=== PATIENT | female | born 1975 | race Caucasian/White ===

== ENCOUNTER 2017-04-28 16:03 | Emergency (ER) | payer MEDICAID ==
[2017-04-28] MEDS ORDERED: KETOROLAC TROMETHAMINE 30 MG/ML VIAL IV ONE (17:02)
[2017-04-28] MEDS ORDERED: diphenhydrAMINE HCL 50 MG/ML VIAL IV ONE ×2 (17:02→18:26)
[2017-04-28] MEDS ORDERED: NORMAL SALINE 1,000 ML IV ONE (17:02)
[2017-04-28] MEDS ORDERED: PROMETHAZINE HCL 25 MG in DEXTROSE 5 % IN WATER 50 ML IV ONE ×2 (17:02)
[2017-04-28] MEDS ORDERED: diphenhydrAMINE HCL 50 MG/ML VIAL ONE ×2 (17:08→18:29)
[2017-04-28] MEDS ORDERED: KETOROLAC TROMETHAMINE 30 MG/ML VIAL ONE (17:08)
[2017-04-28] MEDS ORDERED: PROMETHAZINE HCL 25 MG/ML AMPUL ONE (17:09)
--- OUTSIDE RECORDS SUMMARY | 2017-04-28 17:11 | XMS REPORT | Encounter Summary ---
:1975 Author Organization [place] [place] [address] Care Team Providers Name Role Phone Unavailable Primary Care Provider Unavailable Reason for Visit Reason Comments Other Encounter Details Date Type Department Care Team Description 11/26/2016 Telephone [facility] Urology Christiana Johnson, KESHAV [facility] [address] [place] [address] [place] [address] Social History Tobacco Use Types Packs/Day Years Used Date Former Smoker Smokeless Tobacco: Never Used Alcohol Use Drinks/Week oz/Week Comments No 0 Standard drinks or equivalent 0.0 Sex Assigned at Date Recorded Not on file as of this encounter Plan of Treatment Not on fileas of this encounter Visit Diagnoses Not on filein this encounter
--- OUTSIDE RECORDS SUMMARY | 2017-04-28 17:11 | XMS REPORT | Clinical Summary ---
:1975 Author Organization [facility] Address Unavailable [address] [address] [address] Care Team Providers Name Role Phone Unavailable Primary Care Provider Unavailable Source Comments This disclosure is being made pursuant to the [employer] program and maynot contain all information available regarding this patient.[facility] Allergies Active Allergy Reactions Severity Noted Date Comments Prochlorperazine Edisylate Other (See Comments) 05/03/2015 Restless legs Metoclopramide Hcl Other (See Comments) 05/03/2015 Restless legs Sulfa Antibiotics Other (See Comments) 05/03/2015 Current Medications Be aware that medications may not be up to date as of this document. Alwaysverify current medications with the patient. Prescription Sig. Disp. Refills Start Date End Date Status HYDROcodone-acetaminophen Take 1 tablet 40 tablet 0 05/03/2015 Active (NORCO) 5-325 MG per by mouth every tablet 6 (six) hours as needed for Pain. cyclobenzaprine Take 1 tablet 30 tablet 0 05/26/2015 Active (FLEXERIL) 5 MG tablet by mouth 3 (three) times daily as needed for Muscle spasms. metformin (GLUCOPHAGE) Take 1,000 mg Active 1000 MG tablet by mouth 2 (two) times daily with meals. gabapentin (NEURONTIN) Take 600 mg by Active 100 MG capsule mouth 3 (three) times daily. traMADol (ULTRAM) 50 MG Take 50 mg by Active tablet mouth every 6 (six) hours as needed for Pain. Lurasidone HCl (LATUDA) Take 120 mg by Active 120 MG TABS mouth daily. OXcarbazepine (TRILEPTAL) Take 1,800 mg Active 600 MG tablet by mouth daily. rosuvastatin (CRESTOR) 10 Take 10 mg by Active MG tablet mouth daily. clonazePAM (KLONOPIN) 1 Take 1 mg by Active MG tablet mouth 2 (two) times daily as needed for Anxiety. meloxicam (MOBIC) 15 MG Take 15 mg by Active tablet mouth daily. calcium-vitamin D Take 1 tablet 30 tablet 0 06/06/2015 Active (CALTRATE 600-400) by mouth 2 600-400 MG-UNIT per (two) times tablet daily with meals. Active Problems Problem Noted Date Type II diabetes mellitus (HCC) 06/06/2015 Hyperlipidemia 06/06/2015 Vitamin B12 deficiency 06/06/2015 Right knee sprain 05/05/2015 Immunizations Name Dates Previously Given Next Due Tdap 06/06/2015 Family History Medical History Relation Name Comments Heart disease Father Cancer Mother Cancer Other Diabetes Other Heart disease Other Stroke Other Relation Name Status Comments Father Mother Other Social History Tobacco Use Types Packs/Day Years Used Date Former Smoker Smokeless Tobacco: Never Used Alcohol Use Drinks/Week oz/Week Comments No 0 Standard drinks or equivalent 0.0 Sex Assigned at Date Recorded Not on file Last Filed Vital Signs Vital Sign Reading Time Taken Blood Pressure 118/82 06/06/2015 10:50 AM CDT Pulse 90 06/06/2015 10:50 AM CDT Temperature - - Respiratory Rate 18 06/06/2015 10:50 AM CDT Oxygen Saturation 97% 06/06/2015 10:50 AM CDT Inhaled Oxygen Concentration - - Weight 88 kg (194 lb) 06/06/2015 10:50 AM CDT Height 177.8 cm (5' 10") 06/06/2015 10:50 AM CDT Body Mass Index 27.84 06/06/2015 10:50 AM CDT Plan of Treatment Health Maintenance Due Date Last Done Comments LAB-LIPIDS 1975 LAB-HgA1C 1980 LAB-URINE MICROALBUMIN 1985 Pneumococcal Medium Risk 19-64 yo (1 of 1 - PPSV23) 1994 Pap Smear 1996 Eye (Ophthalmology) Exam 08/29/2015 08/29/2014 INFLUENZA IMMUNIZATION (#1) 2016 Foot Exam 06/06/2016 06/06/2015 Tetanus/Pertussis (2 - Td) 06/06/2025 06/06/2015 Results Not on filefrom Last 3 Months Insurance Payer Benefit Plan / Group Subscriber ID Type Phone Address [place] [id number] [address] [place] [address] Home: [address] [phone] [place], [place] [phone]
--- NOTE | 2017-04-28 17:12 | ERNOTE ---
Headache ER HPI - Narrative Date of Service: 04/28/17 - General Presenting Symptoms: "migraine" Time Seen by Provider: 04/28/17 16:52 Source: patient Exam Limitations: no limitations - Immun/Allergies/Home Medications Immunizations: IMMUNIZATION HX Immunizations Up to Date Yes History of Influenza Vaccine No Hx Pneumococcal Vaccination No Allergies/Adverse Reactions: Allergies metoclopramide HCl [From Reglan] Allergy (Verified 04/28/17 16:09) prochlorperazine [From Compazine] Allergy (Verified 04/28/17 16:09) prochlorperazine edisylate [From Compazine] Allergy (Verified 04/28/17 16:09) prochlorperazine maleate [From Compazine] Allergy (Verified 04/28/17 16:09) Sulfa (Sulfonamide Antibiotics) Allergy (Verified 04/28/17 16:09) Home Medications: HOME MEDICATIONS metFORMIN HCL [Glucophage] 1,000 mg PO BIDWM 01/03/16 [Last Taken 01/14/16] Ibuprofen [Motrin] 800 mg PO .Q8H PRN #30 tablet 01/14/16 [Last Taken Unknown] Ondansetron [Zofran Odt] 4 mg PO Q6H PRN 02/03/16 [Last Taken Unknown] - History of Present Illness Narrative: Pt. comes in with c/o migraine for 5 days that started after she developed a sty in her L eye. Pt. states that she has had migraines in the past and that this one is similar. Pt. denies any vision changes, SOB, CP, NVD, fever, alleviating factors, prehospital treatment, but does state that light exacerbates the pain. Review of Systems - Review of Systems Constitutional: Present: no symptoms reported. Absent: weakness, fatigue, malaise, weight loss EYE: Present: no symptoms reported ENT: Present: no symptoms reported Respiratory: Present: no symptoms reported Cardiology: Present: no symptoms reported. Absent: chest pain, palpitations, edema Gastrointestinal/Abdominal: Present: no symptoms reported. Absent: nausea, vomiting, diarrhea, abdominal pain Genitourinary: Present: no symptoms reported Musculoskeletal: Present: no symptoms reported. Absent: back pain, neck pain, joint pain Skin: Present: no symptoms reported Neurological: Present: headache. Absent: dizziness/light-headedness, numbness, tingling All Other Systems: All systems neg except as marked - Patient's Past Medical History Patient History - Medical: Diabetes Type 2, Migraines Patient History - Cardiac/Respiratory: No pertinent hx Patient History - Cancer: No Hx of Cancer Patient History - Surgical Procedures: Appendectomy, Cholecystectomy, Hysterectomy Patient History - Other: None - Family History dad Family History - Medical: Family History - Cardiac/Respiratory: Myocardial Infarction - Social History Living Situations: home Abuse History: No History of abuse Psych History: Hx of Anxiety, Hx of Depression Alcohol Use: none Drug Use: none - Immunizations Immunizations Up to Date: Yes Hx Pneumococcal Vaccination: No History of Influenza Vaccine: No Physical Exam - Physical Exam General Appearance: Present: wd/wn, alert, no apparent distress Head Exam: Present: normal inspection, no evidence of injury Eye Exam: Normal inspection: bilateral, PERRL: bilateral, EOMI: bilateral, Scleral icterus: left, Eyelid inflammation: left Ears, Nose, Throat: Present: normal ENT inspection, normal pharynx Neck: Present: normal inspection, nontender. Absent: lymphadenopathy (R), lymphadenopathy (L) Respiratory: Present: no respiratory distress, normal breath sounds, no accessory muscle use, chest nontender, lungs clear Cardiovascular/Chest: Present: regular rate, rhythm, no murmur, normal peripheral pulses Back Exam: Present: normal inspection, normal range of motion, no CVA tenderness , no vertebral tenderness Extremity Exam: Present: normal inspection, non-tender Neurological Exam: Present: alert, oriented, normal mood/affect, no motor/ sensory deficits, configuration management architect II-XII nml as tested, normal cerebellar test Skin Exam: Present: normal color, warm/dry. Absent: pallor, skin rash ED Progress - Date and Time Seen: Date and Time: 04/28/17 18:35 Pt. requesting dilaudid for her headache and states that sometimes her migraines last for nine days. Educated her that dilaudid is not the appropriate medication for migraine headaches due to medication complications. - Vital Signs Patient's Vital Signs:: I have reviewed the patient's vital signs. Vital Signs: Vital Signs 04/28/17 04/28/17 16:04 16:40 Temperature 36.3 C L Pulse Rate 81 74 Respiratory 12 Rate Blood Pressure 135/90 125/61 O2 Sat by Pulse 98 96 Oximetry - Progress/Reassessment Chief Complaint: Headache Progress:: Improved Departure Clinical Impression: Migraine Qualifiers: Migraine type: chronic without aura Status migrainosus presence: without status migrainosus Intractability: not intractable Qualified Code(s): G43.709 - Chronic migraine without aura, not intractable, without status migrainosus Conjunctivitis Qualifiers: Conjunctivitis type: blepharoconjunctivitis Blepharoconjunctivitis type: unspecified Laterality: left Qualified Code(s): H10.502 - Unspecified blepharoconjunctivitis, left eye - Departure Disposition: Home self-care Condition: Good Instructions: Recurrent Migraine Headache Additional Instructions: Please follow up with your primary provider in 2-3 days. Referrals: Chidi Atkins MD [Primary Care Provider] -
[2017-04-28] MEDS ORDERED: NALBUPHINE HCL 20 MG/ML AMPUL IV ONE (18:26)
[2017-04-28] MEDS ORDERED: NALBUPHINE HCL 20 MG/ML AMPUL ONE ×2 (18:29→18:36)
[2017-04-28 18:42] VITALS: BP 131/70
== END 2017-04-28 18:54 | disposition home or self-care (01) ==
LOC: ER 16:03
DX: G43.709 Chronic migraine without aura, not intractable, without status migrainosus (principal); H10.502 Unspecified blepharoconjunctivitis, left eye; E11.9 Type 2 diabetes mellitus without complications

== ENCOUNTER 2017-05-01 00:02 | Emergency (ER) | payer MEDICAID ==
--- NOTE | 2017-05-01 01:15 | ERNOTE ---
Headache ER HPI - General Presenting Symptoms: headache, facial pain Time Seen by Provider: 05/01/17 00:58 Source: patient Exam Limitations: no limitations - Immun/Allergies/Home Medications Immunizations: IMMUNIZATION HX Immunizations Up to Date No History of Influenza Vaccine No Hx Pneumococcal Vaccination No Allergies/Adverse Reactions: Allergies metoclopramide HCl [From Reglan] Allergy (Verified 05/01/17 00:30) prochlorperazine [From Compazine] Allergy (Verified 05/01/17 00:30) prochlorperazine edisylate [From Compazine] Allergy (Verified 05/01/17 00:30) prochlorperazine maleate [From Compazine] Allergy (Verified 05/01/17 00:30) Sulfa (Sulfonamide Antibiotics) Allergy (Verified 05/01/17 00:30) Home Medications: HOME MEDICATIONS metFORMIN HCL [Glucophage] 1,000 mg PO BIDWM 01/03/16 [Last Taken 01/14/16] Meloxicam [Mobic] 15 mg PO DAILY #14 tab 05/01/17 [Last Taken Unknown] - Pain Pain Score: 8 - History of Present Illness Narrative: Pt states that she was going through a doorway in her house and hit both sides of her head on the doorway. States she has been vomiting and has severe headache and blurred vision Activity at onset: other Timing of Headache: abrupt Context Headache: Present: new onset Quality: Present: throbbing Severity Maximum: Present: severe Severity-Currently: Present: severe Review of Systems - Review of Systems Constitutional: Absent: recent illness EYE: Present: blurred vision ENT: Present: other - facial pain Respiratory: Present: no symptoms reported Cardiology: Present: no symptoms reported Gastrointestinal/Abdominal: Present: nausea, vomiting Musculoskeletal: Absent: back pain, neck pain, joint pain Skin: Present: change in color - left "black eye" from another injury Neurological: Present: headache, dizziness/light-headedness Endocrine: Present: no symptoms reported Hematologic/Lymphatic: Present: no symptoms reported Psych: Present: no symptoms reported - Patient's Past Medical History Patient History - Medical: Diabetes Type 2, Migraines Patient History - Cardiac/Respiratory: No pertinent hx Patient History - Cancer: No Hx of Cancer Patient History - Surgical Procedures: Appendectomy, Cholecystectomy, Hysterectomy Patient History - Other: None - Family History dad Family History - Medical: Family History - Cardiac/Respiratory: Myocardial Infarction - Social History Living Situations: home Abuse History: No History of abuse Psych History: Hx of Anxiety, Hx of Depression Smoking Status: Former smoker Patient requests Smoking Cessation Consult: No Initiate information on Smoking Cessation: No Alcohol Use: none Drug Use: none - Immunizations Immunizations Up to Date: No Hx Pneumococcal Vaccination: No History of Influenza Vaccine: No Physical Exam - Physical Exam General Appearance: Present: wd/wn, alert, moderate distress, anxious Head Exam: Present: tenderness - bilateral temples, maxilla. Absent: lacerations Eye Exam: PERRL: bilateral, EOMI: bilateral, Other: left - bruising around eye, old Ears, Nose, Throat: Present: other - TM's normal b/l. Absent: nasal congestion Neck: Present: normal inspection, nontender, supple, full range of motion Respiratory: Present: no respiratory distress, no accessory muscle use Back Exam: Present: normal inspection, normal range of motion, no vertebral tenderness Extremity Exam: Present: normal inspection, non-tender, normal range of motion, no edema Neurological Exam: Present: alert, oriented Skin Exam: Present: normal color, warm/dry Lymphatic Exam: Present: no adenopathy ED Progress - Results and Orders Patient's Lab Results:: I have reviewed the patient's lab results. Results and Orders: Laboratory Tests 05/01/17 05/01/17 05/01/17 01:08 01:08 01:09 WBC 10.8 H Hgb 11.1 L Hct 34.0 L Plt Count 281 ESR 23 H Sodium 143 H Potassium 3.7 Chloride 103 Carbon Dioxide 28.1 Anion Gap 15.6 H BUN 14 Creatinine 0.68 Random Glucose 90 Calcium 8.8 Total Bilirubin 0.2 AST 13 ALT 17 L Alkaline Phosphatase 120 C-Reactive Prot, Quant Less than 0.2 Total Protein 7.3 Albumin 4.1 - Vital Signs Patient's Vital Signs:: I have reviewed the patient's vital signs. Vital Signs: Vital Signs 05/01/17 00:26 Temperature 36.8 C Pulse Rate 96 Respiratory 18 Rate Blood Pressure 136/93 O2 Sat by Pulse 98 Oximetry - CT/Ultrasound CT/Ultrasound Narrative: CT head: no intracranial hemorrhage or mass effect CT facial bones: mild frontal scalp swelling left periorbital soft tissue swelling no fx clear mastoids and sinuses - Progress/Reassessment Chief Complaint: Headache Progress:: Improved - slightly Progress Note-Subjective: 05/01/17 03:19 Ordered zofran and toradol after getting CT results back. Pt refused either one and asked for phenergan because she knows that will work for her. Pt was only slightly better after phenergan. I offered meloxicam and acetaminophen. Pt then asked for toradol and benadryl to help her sleep. I agreed. Departure Clinical Impression: Concussion Qualifiers: Encounter type: initial encounter Loss of consciousness presence/duration: without LOC Qualified Code(s): S06.0X0A - Concussion without loss of consciousness, initial encounter - Departure Disposition: Home Follow Up Needed Condition: Good Instructions: Concussion, Adult, [id number] Additional Instructions: You may take the prescription sent in for you as directed. You may also take Tylenol as needed. Avoid strenuous activities. See your regular doctor for follow up in 5-7 days Referrals: Chidi Atkins MD [Primary Care Provider] - Prescriptions: Meloxicam [Mobic] 15 mg PO DAILY #14 tab
--- OUTSIDE RECORDS SUMMARY | 2017-05-01 01:19 | XMS REPORT | Clinical Summary ---
:1975 Author Organization [facility] Address Unavailable [place] [address] Care Team Providers Name Role Phone Unavailable Primary Care Provider Unavailable Source Comments This disclosure is being made pursuant to the [employer] program and maynot contain all information available regarding this patient.[facility] Allergies Active Allergy Reactions Severity Noted Date [...] ID Type Phone Address [place] [id number] [address] [place] [address] Home: [address] [phone] [place], [place] [phone]
--- OUTSIDE RECORDS SUMMARY | 2017-05-01 01:20 | XMS REPORT | Encounter Summary ---
:1975 Author Organization [employer] [place] [address] Care Team Providers Name Role Phone Unavailable Primary Care Provider Unavailable Reason for Visit Reason Comments Other Encounter Details Date Type Department Care Team Description 11/26/2016 Telephone [facility] Urology Christiana Johnson, KESHAV [facility] [address] [place] [address] [place] [address] Social History Tobacco Use Types [...]
[2017-05-01 01:45] LABS: Hemoglobin 11.1 gm/dL (12.5-16.0); Mean Cell Volume 89.5 fl (78-100); Mean Corpuscular Hemoglobin 29.2 pg (27-31); Mean Corpuscular Hgb Conc 32.6 g/dl (32-36); Mean Platelet Volume 9.8 fl (6.0-9.5); Neutrophil # 7.2 K/mm3 (1.3-6.0); Neutrophil % 66.8 % (42-75.0); Platelet Count 281 K/mm3 (150-450); Red Cell Distribution Width 13.3 % (11.5-14.0); White Blood Count 10.8 K/mm3 (4.0-10.5)
[2017-05-01] MEDS ORDERED: ONDANSETRON HCL/PF 2 MG/ML VIAL IV ONE (02:02)
[2017-05-01] MEDS ORDERED: NORMAL SALINE 1,000 ML IV ONE (02:02)
[2017-05-01] MEDS ORDERED: KETOROLAC TROMETHAMINE 30 MG/ML VIAL IV ONE ×2 (02:02→03:13)
[2017-05-01] MEDS ORDERED: ONDANSETRON HCL/PF 2 MG/ML VIAL ONE (02:06)
[2017-05-01] MEDS ORDERED: KETOROLAC TROMETHAMINE 30 MG/ML VIAL ONE ×2 (02:06→03:13)
[2017-05-01 02:08] LABS: ALT 17 U/L (19-67); AST 13 U/L (0-48); Albumin * 4.1 gm/dl (3.4-5.0); Alkaline Phosphatase * 120 U/L (50-170); Anion Gap 15.6 mmol/L (6.8-13.8); BUN/Creatinine Ratio 20.6 (9.0-21.6); Bilirubin, Total 0.2 mg/dL (0.0-1.1); Blood Urea Nitrogen 14 mg/dL (3-23); Ca. Corrected For Albumin 8.4 mg/dL (8.4-10.2); Calcium * 8.8 mg/dL (7.9-10.9); Carbon Dioxide 28.1 mmol/L (24-32.6); Chloride 103 mmol/L (97-106); Glucose * 90 mg/dL (70-110); Potassium 3.7 mmol/L (3.4-4.6); Sodium 143 mmol/L (132-142); Total Protein 7.3 gm/dL (6.2-8.2)
[2017-05-01] MEDS ORDERED: PROMETHAZINE HCL 25 MG/ML AMPUL IM ONE (02:33)
[2017-05-01] MEDS ORDERED: PROMETHAZINE HCL 25 MG/ML AMPUL ONE (02:38)
[2017-05-01 02:46] VITALS: BP 132/76
[2017-05-01] MEDS ORDERED: diphenhydrAMINE HCL 50 MG/ML VIAL IV ONE (03:13)
[2017-05-01] MEDS ORDERED: diphenhydrAMINE HCL 50 MG/ML VIAL ONE (03:13)
== END 2017-05-01 03:28 | disposition home or self-care (01) ==
LOC: ER 00:02
DX: S06.0X0A Concussion without loss of consciousness, initial encounter (principal); E11.9 Type 2 diabetes mellitus without complications; Z87.891 Personal history of nicotine dependence; W22.8XXA Striking against or struck by other objects, initial encounter; Y92.098 Other place in other non-institutional residence as the place of occurrence of the external cause

== ENCOUNTER 2017-05-21 13:58 | Emergency (ER) | payer MEDICAID ==
[2017-05-21] MEDS ORDERED: NITROGLYCERIN 0.4 MG/TAB BTL SL ONE (14:24)
[2017-05-21] MEDS ORDERED: ASPIRIN 81 MG TAB.CHEW PO ONE (14:24)
[2017-05-21 14:25] LABS: Hematocrit 31.3 % (37.0-47.0); Hemoglobin 10.4 gm/dL (12.5-16.0); Mean Cell Volume 89.2 fl (78-100); Mean Corpuscular Hemoglobin 29.6 pg (27-31); Mean Corpuscular Hgb Conc 33.2 g/dl (32-36); Mean Platelet Volume 9.8 fl (6.0-9.5); Neutrophil # 3.4 K/mm3 (1.3-6.0); Platelet Count 269 K/mm3 (150-450); Red Blood Count 3.51 M/mm3 (4.2-5.4); Red Cell Distribution Width 13.7 % (11.5-14.0); White Blood Count 6.4 K/mm3 (4.0-10.5)
--- NOTE | 2017-05-21 14:33 | ERNOTE ---
Chest Pain/Cardiac HPI Date of Service: 05/21/17 Chief Complaint: Chest Pain Time Seen by Provider: 05/21/17 14:19 Source: patient, RN notes reviewed Exam Limitations: no limitations Immunizations: IMMUNIZATION HX Immunizations Up to Date No History of Influenza Vaccine No Hx Pneumococcal Vaccination No Allergies/Adverse Reactions: Allergies metoclopramide HCl [From Reglan] Allergy (Verified 05/21/17 14:12) prochlorperazine [From Compazine] Allergy (Verified 05/21/17 14:12) prochlorperazine edisylate [From Compazine] Allergy (Verified 05/21/17 14:12) prochlorperazine maleate [From Compazine] Allergy (Verified 05/21/17 14:12) Sulfa (Sulfonamide Antibiotics) Allergy (Verified 05/21/17 14:12) Home Medications: HOME MEDICATIONS metFORMIN HCL [Glucophage] 1,000 mg PO BIDWM 01/03/16 [Last Taken 01/14/16] Meloxicam [Mobic] 15 mg PO DAILY #14 tab 05/01/17 [Last Taken Unknown] Pain Score #1 Pain Score: 10 Narrative: 41 y/o female brought to the ED by private vehicle for chest pain that woke her from sleep at 1230. It is radiating down her left arm. She also reports a headache. She states that she was feeling fine when she went to bed. Timing: constant Severity/Quality: severe, pressure Location: substernal Chest Pain Radiation: arms Activities at Onset: sleep Modifying Factors - Improves: Present: nothing Modifying Factors - Worsens: Present: nothing Nitro Today/Relief: no nitro taken today Aspirin Treatment Today: no aspirin today Associated Symptoms: Present: headache. Absent: dizziness, syncope, cough, shortness of breath, diaphoresis, fever/chills, palpitations, heartburn, nausea , vomiting, abdominal pain, weakness, back pain Prior Chest Pain/Cardiac Workup: Reports: no prior cardiac workup Prior Treatment: Denies: recently seen Review of Systems - Review of Systems Constitutional: Absent: recent illness, fever, chills EYE: Present: no symptoms reported ENT: Absent: nose congestion, sore throat Respiratory: Absent: shortness of breath, cough Cardiology: Present: chest pain. Absent: palpitations, syncope, edema Gastrointestinal/Abdominal: Absent: nausea, vomiting, abdominal pain Genitourinary: Present: no symptoms reported Musculoskeletal: Absent: back pain, muscle pain Skin: Absent: rash, lesions Neurological: Present: headache. Absent: dizziness/light-headedness Endocrine: Present: no symptoms reported Hematologic/Lymphatic: Absent: easy bruising, easy bleeding Psych: Present: no symptoms reported - Patient's Past Medical History Patient History - Medical: Diabetes Type 2, Migraines Patient History - Cardiac/Respiratory: No pertinent hx Patient History - Cancer: No Hx of Cancer Patient History - Surgical Procedures: Appendectomy, Cholecystectomy, Hysterectomy Patient History - Other: None - Family History dad Family History - Medical: Family History - Cardiac/Respiratory: Myocardial Infarction - Social History Living Situations: home Abuse History: No History of abuse Psych History: Hx of Anxiety, Hx of Depression Smoking Status: Never smoker Alcohol Use: none Drug Use: none - Immunizations Immunizations Up to Date: No Hx Pneumococcal Vaccination: No History of Influenza Vaccine: No Physical Exam - Physical Exam General Appearance: Present: wd/wn, no apparent distress, other - groggy, slow speech - disheveled appearance, wearing sunglasses throughout exam Head Exam: Present: normal inspection Neck: Present: normal inspection, nontender, supple Respiratory: Present: no respiratory distress, normal breath sounds, no accessory muscle use, chest nontender, lungs clear Cardiovascular/Chest: Present: regular rate, rhythm, no murmur, normal peripheral pulses Gastrointestinal/Abdominal: Present: nontender, nondistended, soft Extremity Exam: Present: normal inspection, normal range of motion, no edema Neurological Exam: Present: alert, oriented, normal mood/affect Skin Exam: Present: normal color, warm/dry ED Progress - Results and Orders Patient's Lab Results:: I have reviewed the patient's lab results. - Vital Signs Patient's Vital Signs:: I have reviewed the patient's vital signs. Vital Signs: Vital Signs 05/21/17 14:10 Temperature 36.6 C Pulse Rate 72 Respiratory 16 Rate Blood Pressure 130/80 O2 Sat by Pulse 97 Oximetry - EKG EKG: NSR EKG read: Reviewed by me - X-Ray X-Ray #1 X-Ray: chest Interpretation: Reviewed by me X-ray Comments: Chest PA Lateral * Normal lung volumes. No consolidation or mass. No definable pneumothorax. Lateral view of the chest demonstrates slightly blunted appearance of the left costophrenic angle suggestive of trace left-sided pleural effusion. Cardiac and mediastinal silhouettes are normal. Trachea is in normal position. Bones show degenerative changes of the spine. IMPRESSION: 1. Trace left-sided pleural effusion. 2. Additional comments are as above. - Progress/Reassessment Chief Complaint: Chest Pain Progress:: Improved Progress Note-Subjective: 05/21/17 16:01 Labs and EKG are unremarkable, continues to report severe headache after toradol , phenergan and Benadryl. States her chest pain is mostly gone, that it is just discomfort, but then says it feels like someone is sitting on her chest and suffocating her. Does not appear to be in any distress. 05/21/17 16:35 Haldol given for migraine - patient reported this had worked in the past for her. States she is ready to go home approx 30 min. after med given Departure - Departure Clinical Impression: Chest wall pain Migraine Qualifiers: Migraine type: unspecified Status migrainosus presence: without status migrainosus Intractability: not intractable Qualified Code(s): G43.909 - Migraine, unspecified, not intractable, without status migrainosus Disposition: Home self-care Condition: Stable Instructions: Chest Wall Pain, [id number] Additional Instructions: Rest and drink plenty of fluids this evening Return to the ER or follow up with your doctor as needed for new/worsening symptoms Referrals: Chidi Atkins MD [Primary Care Provider] -
[2017-05-21 14:42] LABS: Blood Urea Nitrogen 8 mg/dL (3-23); Glucose * 86 mg/dL (70-110)
[2017-05-21 14:43] LABS: ALT 14 U/L (19-67); AST 9 U/L (0-48); Albumin * 3.6 gm/dl (3.4-5.0); Alkaline Phosphatase * 104 U/L (50-170); BUN/Creatinine Ratio 12.3 (9.0-21.6); Bilirubin, Total 0.1 mg/dL (0.0-1.1); Ca. Corrected For Albumin 8.4 mg/dL (8.4-10.2); Calcium * 8.4 mg/dL (7.9-10.9); Carbon Dioxide 27.3 mmol/L (24-32.6); Chloride 105 mmol/L (97-106); Potassium 4.3 mmol/L (3.4-4.6); Sodium 142 mmol/L (132-142); Total Protein 6.6 gm/dL (6.2-8.2); Troponin I Less than 0.017 ng/ml (0.00-0.10)
[2017-05-21] MEDS ORDERED: ASPIRIN 81 MG TAB.CHEW ONE (14:52)
[2017-05-21] MEDS ORDERED: PROMETHAZINE HCL 25 MG in DEXTROSE 5 % IN WATER 50 ML IV ONE ×2 (15:06)
[2017-05-21] MEDS ORDERED: KETOROLAC TROMETHAMINE 30 MG/ML VIAL IV ONE (15:06)
[2017-05-21] MEDS ORDERED: NORMAL SALINE 1,000 ML IV ONE (15:06)
[2017-05-21 15:18] LABS: Urine Bilirubin Negative (NEGATIVE); Urine Blood Negative /ul (NEGATIVE); Urine Ketone Negative (NEGATIVE); Urine Nitrite Negative (NEGATIVE); Urine Protein Negative (NEGATIVE); Urine Urobilinogen Normal (NORMAL)
[2017-05-21] MEDS ORDERED: diphenhydrAMINE HCL 50 MG/ML VIAL ONE (15:25)
[2017-05-21] MEDS ORDERED: KETOROLAC TROMETHAMINE 30 MG/ML VIAL ONE (15:25)
[2017-05-21] MEDS: diphenhydrAMINE HCL 50 MG/ML VIAL IV ONE ×2 (15:27→15:29)
[2017-05-21 15:28] LABS: Urine Appearance Clear; Urine Bacteria None Seen; Urine Color Yellow; Urine RBC None Seen /hpf (0-5); Urine WBC None Seen /hpf (0-5)
[2017-05-21 15:31] LABS: Cocaine Ur Negative (NEGATIVE); Urine Barbiturate Negative (NEGATIVE); Urine Benzodiazepines Negative (NEGATIVE); Urine Opiates Negative (NEGATIVE); Urine PCP Negative (NEGATIVE); Urine THC Negative (NEGATIVE)
[2017-05-21] MEDS ORDERED: HALOPERIDOL LACTATE 5 MG/ML VIAL IM ONE (16:00)
[2017-05-21] MEDS ORDERED: HALOPERIDOL LACTATE 5 MG/ML VIAL ONE (16:11)
[2017-05-21 16:18] VITALS: BP 144/88
== END 2017-05-21 16:38 | disposition home or self-care (01) ==
LOC: ER 13:58
DX: R07.89 Other chest pain (principal)

== ENCOUNTER 2017-05-24 00:56 | Emergency (ER) | payer MEDICAID ==
[2017-05-24] MEDS ORDERED: NORMAL SALINE 1,000 ML IV ONE (01:09)
[2017-05-24] MEDS ORDERED: ONDANSETRON HCL/PF 2 MG/ML VIAL IV ONE (01:09)
[2017-05-24 01:32] LABS: Urine Bilirubin Negative (NEGATIVE); Urine Blood Negative /ul (NEGATIVE); Urine Ketone Negative (NEGATIVE); Urine Nitrite Negative (NEGATIVE); Urine Protein Negative (NEGATIVE); Urine Specific Gravity <=1.005 SP.GR. (1.005-1.010); Urine Urobilinogen Normal (NORMAL)
[2017-05-24 01:33] LABS: Urine Appearance Clear; Urine Color Colorless
[2017-05-24 01:33] LABS: Cocaine Ur Negative (NEGATIVE); Urine Barbiturate Negative (NEGATIVE); Urine Benzodiazepines Negative (NEGATIVE); Urine Opiates Negative (NEGATIVE); Urine PCP Negative (NEGATIVE); Urine THC Negative (NEGATIVE)
[2017-05-24 01:34] LABS: Urine Bacteria None Seen; Urine RBC 0-5 /hpf (0-5); Urine WBC 0-5 /hpf (0-5)
[2017-05-24] MEDS ORDERED: KETOROLAC TROMETHAMINE 30 MG/ML VIAL IV ONE (01:58)
[2017-05-24] MEDS ORDERED: HYDROmorphone HCL 1 MG/ML DISP.SYRIN IV ONE (01:58)
[2017-05-24] MEDS ORDERED: HYDROmorphone HCL 1 MG/ML DISP.SYRIN ONE (02:00)
[2017-05-24] MEDS ORDERED: KETOROLAC TROMETHAMINE 30 MG/ML VIAL ONE (02:00)
[2017-05-24] MEDS ORDERED: ONDANSETRON HCL/PF 2 MG/ML VIAL ONE (02:00)
[2017-05-24 02:42] VITALS: BP 109/63
--- NOTE | 2017-06-27 08:08 | ERNOTE ---
Headache ER HPI - General Presenting Symptoms: headache Time Seen by Provider: 05/24/17 01:07 Source: patient Exam Limitations: no limitations - Immun/Allergies/Home Medications Immunizations: IMMUNIZATION HX Immunizations Up to Date Yes History of Influenza Vaccine No Hx Pneumococcal Vaccination No Allergies/Adverse Reactions: Allergies metoclopramide HCl [From Reglan] Allergy (Verified 06/12/17 16:27) prochlorperazine [From Compazine] Allergy (Verified 06/12/17 16:27) prochlorperazine edisylate [From Compazine] Allergy (Verified 06/12/17 16:27) prochlorperazine maleate [From Compazine] Allergy (Verified 06/12/17 16:27) Sulfa (Sulfonamide Antibiotics) Allergy (Verified 06/12/17 16:27) Home Medications: HOME MEDICATIONS metFORMIN HCL [Glucophage] 1,000 mg PO BIDWM 01/03/16 [Last Taken 05/28/17] - History of Present Illness Narrative: pt states she has a migraine headache it has been going on for 24 hours. Did not start as thunderclap and not worst headache ever Review of Systems - Review of Systems Constitutional: Present: no symptoms reported EYE: Present: other - some photophobia ENT: Present: no symptoms reported Respiratory: Present: no symptoms reported Cardiology: Present: no symptoms reported Gastrointestinal/Abdominal: Present: no symptoms reported Genitourinary: Present: no symptoms reported Musculoskeletal: Present: no symptoms reported Skin: Present: no symptoms reported Neurological: Present: headache - Patient's Past Medical History Patient History - Medical: Diabetes Type 2, Migraines Patient History - Cardiac/Respiratory: No pertinent hx Patient History - Cancer: No Hx of Cancer Patient History - Surgical Procedures: Appendectomy, Cholecystectomy, Hysterectomy Patient History - Other: None - Family History dad Family History - Medical: Family History - Cardiac/Respiratory: Myocardial Infarction - Social History Living Situations: home Abuse History: No History of abuse Psych History: Hx of Anxiety, Hx of Depression Have you smoked in the past 12 months: No Do you dip or chew tobacco: No Alcohol Use: none Drug Use: none - Immunizations Immunizations Up to Date: Yes Hx Pneumococcal Vaccination: No History of Influenza Vaccine: No Physical Exam - Physical Exam General Appearance: Present: wd/wn, alert, no apparent distress Head Exam: Present: normal inspection, no evidence of injury Eye Exam: Normal inspection: bilateral, PERRL: bilateral, EOMI: bilateral Ears, Nose, Throat: Present: normal ENT inspection Neck: Present: normal inspection Respiratory: Present: no respiratory distress Cardiovascular/Chest: Present: regular rate, rhythm ED Progress - Results and Orders Patient's Lab Results:: I have reviewed the patient's lab results. - Vital Signs Patient's Vital Signs:: I have reviewed the patient's vital signs. - Progress/Reassessment Chief Complaint: Headache Departure Clinical Impression: Migraine Qualifiers: Migraine type: other Status migrainosus presence: with status migrainosus Intractability: not intractable Qualified Code(s): G43.801 - Other migraine, not intractable, with status migrainosus - Departure Disposition: Home self-care Condition: Good Instructions: Migraine Headache, [id number] Referrals: Papito Atkins MD [Primary Care Provider] -
== END 2017-05-24 02:43 | disposition home or self-care (01) ==
LOC: ER 00:56
DX: G43.801 Other migraine, not intractable, with status migrainosus (principal); E11.9 Type 2 diabetes mellitus without complications
CPT/HCPCS: 80307; 81001; 96374; 96375; 99283; J2405

== ENCOUNTER 2017-05-28 15:53 | Emergency (ER) | payer MEDICAID ==
[2017-05-28 15:59] VITALS: BP 123/75
[2017-05-28] MEDS ORDERED: NORMAL SALINE 1,000 ML IV ONE (16:08)
[2017-05-28] MEDS ORDERED: PROMETHAZINE HCL 12.5 MG in DEXTROSE 5 % IN WATER 50 ML IV ONE ×2 (16:08)
[2017-05-28] MEDS ORDERED: diphenhydrAMINE HCL 50 MG/ML VIAL IV ONE (16:08)
[2017-05-28] MEDS ORDERED: HALOPERIDOL LACTATE 5 MG/ML VIAL ONE (16:10)
[2017-05-28] MEDS ORDERED: HALOPERIDOL LACTATE 5 MG/ML VIAL IM ONE (16:10)
--- NOTE | 2017-05-28 16:15 | ERNOTE ---
Headache ER HPI - General Presenting Symptoms: "migraine" Time Seen by Provider: 05/28/17 16:01 Source: patient Exam Limitations: no limitations - Immun/Allergies/Home Medications Immunizations: IMMUNIZATION HX Immunizations Up to Date Yes History of Influenza Vaccine No Hx Pneumococcal Vaccination No Allergies/Adverse Reactions: Allergies metoclopramide HCl [From Reglan] Allergy (Verified 05/28/17 16:00) prochlorperazine [From Compazine] Allergy (Verified 05/28/17 16:00) prochlorperazine edisylate [From Compazine] Allergy (Verified 05/28/17 16:00) prochlorperazine maleate [From Compazine] Allergy (Verified 05/28/17 16:00) Sulfa (Sulfonamide Antibiotics) Allergy (Verified 05/28/17 16:00) Home Medications: HOME MEDICATIONS metFORMIN HCL [Glucophage] 1,000 mg PO BIDWM 01/03/16 [Last Taken 05/28/17] Meloxicam [Mobic] 15 mg PO DAILY #14 tab 05/01/17 [Last Taken 05/28/17] - History of Present Illness Narrative: Patient states that she has one of her typical migraines, onset approximately 3 days ago throbbing in nature moderate to severe in intensity and she's been unable to control the headache at home with either Advil or Tylenol. Timing of Headache: gradual, still present, constant Quality: Present: throbbing Severity Maximum: Present: severe Severity-Currently: Present: severe Headache frequency: Present: chronic headaches, similar to previous headache Modifying Factors - (Improves): Reports: rest Modifying Factors - (Worsens): Reports: rest Associated Symptoms: Reports: nausea Exacerbated by:: Reports: light, noise Review of Systems - Review of Systems Constitutional: Present: See HPI EYE: Present: no symptoms reported ENT: Present: no symptoms reported Respiratory: Present: no symptoms reported Cardiology: Present: no symptoms reported Gastrointestinal/Abdominal: Present: nausea Genitourinary: Present: no symptoms reported Musculoskeletal: Present: no symptoms reported Skin: Present: no symptoms reported Neurological: Present: headache Endocrine: Present: no symptoms reported Hematologic/Lymphatic: Present: no symptoms reported Psych: Present: no symptoms reported - Patient's Past Medical History Patient History - Medical: Diabetes Type 2, Migraines Patient History - Cardiac/Respiratory: No pertinent hx Patient History - Cancer: No Hx of Cancer Patient History - Surgical Procedures: Appendectomy, Cholecystectomy, Hysterectomy Patient History - Other: None - Family History dad Family History - Medical: Family History - Cardiac/Respiratory: Myocardial Infarction - Social History Living Situations: home Abuse History: No History of abuse Psych History: Hx of Anxiety, Hx of Depression Smoking Status: Never smoker Have you smoked in the past 12 months: No Do you dip or chew tobacco: No Alcohol Use: none Drug Use: none - Immunizations Immunizations Up to Date: Yes Hx Pneumococcal Vaccination: No History of Influenza Vaccine: No Physical Exam - Physical Exam General Appearance: Present: wd/wn, alert, severe distress Head Exam: Present: normal inspection Eye Exam: Normal inspection: bilateral, PERRL: bilateral, Photophobia: bilateral Ears, Nose, Throat: Present: normal ENT inspection, H, normal pharynx Neck: Present: normal inspection, nontender Respiratory: Present: no respiratory distress, normal breath sounds, no accessory muscle use, chest nontender, lungs clear Cardiovascular/Chest: Present: regular rate, rhythm, no murmur, normal peripheral pulses Gastrointestinal/Abdominal: Present: normal bowel sounds, nontender, nondistended, soft, no organomegaly Rectal Exam: Present: deferred Back Exam: Present: normal inspection, normal range of motion Extremity Exam: Present: normal inspection, non-tender, no edema, normal range of motion Neurological Exam: Present: alert, oriented, normal mood/affect Skin Exam: Present: normal color, warm/dry Lymphatic Exam: Present: no adenopathy ED Progress - Vital Signs Patient's Vital Signs:: I have reviewed the patient's vital signs. Vital Signs: Vital Signs 05/28/17 15:56 Temperature 36.5 C Pulse Rate 84 Respiratory 16 Rate Blood Pressure 123/75 O2 Sat by Pulse 99 Oximetry - Progress/Reassessment Chief Complaint: Headache Progress:: Improved Plan - Plan Plan: Patient stated that what seems to help his 5 mg of Haldol IM and after giving her the Haldol within a half hour she felt better and wanted to go home. We will have her follow up with her family physician as needed Departure Clinical Impression: Migraine Qualifiers: Migraine type: with aura Status migrainosus presence: without status migrainosus Intractability: not intractable Qualified Code(s): G43.109 - Migraine with aura, not intractable, without status migrainosus - Departure Disposition: Home self-care Condition: Good Instructions: Recurrent Migraine Headache, [id number]
== END 2017-05-28 16:45 | disposition home or self-care (01) ==
LOC: ER 15:53
DX: G43.109 Migraine with aura, not intractable, without status migrainosus (principal); E11.9 Type 2 diabetes mellitus without complications

== ENCOUNTER 2017-06-12 16:14 | Emergency (ER) | payer MEDICAID ==
[2017-06-12] MEDS ORDERED: KETOROLAC TROMETHAMINE 30 MG/ML VIAL IV ONE (16:41)
[2017-06-12] MEDS ORDERED: PROMETHAZINE HCL 25 MG in DEXTROSE 5 % IN WATER 50 ML IV ONE ×2 (16:41)
[2017-06-12] MEDS ORDERED: diphenhydrAMINE HCL 50 MG/ML VIAL IV ONE (16:41)
[2017-06-12] MEDS ORDERED: NORMAL SALINE 1,000 ML IV ONE (16:41)
--- NOTE | 2017-06-12 16:42 | ERNOTE ---
Headache ER HPI - Narrative Date of Service: 06/12/17 - General Presenting Symptoms: "migraine" Time Seen by Provider: 06/12/17 16:31 Source: patient, RN notes reviewed Exam Limitations: no limitations - Immun/Allergies/Home Medications Immunizations: IMMUNIZATION HX Immunizations Up to Date Yes History of Influenza Vaccine No Hx Pneumococcal Vaccination No Allergies/Adverse Reactions: Allergies metoclopramide HCl [From Reglan] Allergy (Verified 06/12/17 16:27) prochlorperazine [From Compazine] Allergy (Verified 06/12/17 16:27) prochlorperazine edisylate [From Compazine] Allergy (Verified 06/12/17 16:27) prochlorperazine maleate [From Compazine] Allergy (Verified 06/12/17 16:27) Sulfa (Sulfonamide Antibiotics) Allergy (Verified 06/12/17 16:27) Home Medications: HOME MEDICATIONS metFORMIN HCL [Glucophage] 1,000 mg PO BIDWM 01/03/16 [Last Taken 05/28/17] - History of Present Illness Narrative: 41 y/o female ambulatory to the ED for a "migraine" that has been ongoing for 7 days. She has been taking OTC medications without any improvement. She has been seen here for this several times in the past, most recently just 2 weeks ago. Date (Duration): 06/05/17 Timing of Headache: gradual, constant, worse, persistent Context Headache: Present: new onset Quality: Present: throbbing Severity Maximum: Present: severe Severity-Currently: Present: severe Headache frequency: Present: chronic headaches, similar to previous headache Exacerbated by:: Reports: light Prior Treament: Reports: recently seen, treated by physician, similar symptoms before Review of Systems - Review of Systems Constitutional: Present: fatigue, malaise. Absent: fever, chills EYE: Absent: eye pain, vision changes ENT: Absent: nose congestion, sore throat Respiratory: Absent: shortness of breath, cough Cardiology: Absent: chest pain, syncope Gastrointestinal/Abdominal: Absent: nausea, vomiting, abdominal pain Genitourinary: Present: no symptoms reported Musculoskeletal: Absent: back pain, neck pain, joint pain Skin: Absent: rash, lesions Neurological: Present: headache. Absent: dizziness/light-headedness Endocrine: Present: no symptoms reported Hematologic/Lymphatic: Present: no symptoms reported Psych: Present: no symptoms reported - Patient's Past Medical History Patient History - Medical: Diabetes Type 2, Migraines Patient History - Cardiac/Respiratory: No pertinent hx Patient History - Cancer: No Hx of Cancer Patient History - Surgical Procedures: Appendectomy, Cholecystectomy, Hysterectomy Patient History - Other: None LMP (females 10-50): other - Family History dad Family History - Medical: Family History - Cardiac/Respiratory: Myocardial Infarction - Social History Living Situations: home Abuse History: No History of abuse Psych History: Hx of Anxiety, Hx of Depression Smoking Status: Never smoker Alcohol Use: none Drug Use: none - Immunizations Immunizations Up to Date: Yes Hx Pneumococcal Vaccination: No History of Influenza Vaccine: No Physical Exam - Physical Exam General Appearance: Present: wd/wn, alert, no apparent distress Head Exam: Present: normal inspection, no evidence of injury Eye Exam: PERRL: bilateral, EOMI: bilateral, Photophobia: bilateral Ears, Nose, Throat: Present: normal ENT inspection, normal pharynx. Absent: sinus pain/drainage Neck: Present: normal inspection, nontender, supple, full range of motion Respiratory: Present: no respiratory distress, normal breath sounds, no accessory muscle use, lungs clear Cardiovascular/Chest: Present: regular rate, rhythm, no murmur Extremity Exam: Present: normal inspection, normal range of motion, no edema Neurological Exam: Present: alert, oriented, normal mood/affect Skin Exam: Present: normal color, warm/dry ED Progress - Vital Signs Patient's Vital Signs:: I have reviewed the patient's vital signs. Vital Signs: Vital Signs 06/12/17 16:22 Temperature 37.0 C Pulse Rate 86 Respiratory 14 Rate Blood Pressure 106/77 O2 Sat by Pulse 99 Oximetry - Progress/Reassessment Chief Complaint: Headache Progress:: Improved Progress Note-Subjective: Several attempts were made for IV access before medications were changed to IM. Patient verbalizes some improvement after IM Phenergan, Toradol and Benadryl and that she is ready to go home. Departure Clinical Impression: Migraine Qualifiers: Migraine type: unspecified Status migrainosus presence: without status migrainosus Intractability: not intractable Qualified Code(s): G43.909 - Migraine, unspecified, not intractable, without status migrainosus - Departure Disposition: Home Follow Up Needed Condition: Stable Instructions: Migraine Headache, [id number] Referrals: Papito Atkins MD [Primary Care Provider] -
[2017-06-12] MEDS ORDERED: diphenhydrAMINE HCL 50 MG/ML VIAL ONE ×2 (17:35→18:34)
[2017-06-12] MEDS ORDERED: KETOROLAC TROMETHAMINE 30 MG/ML VIAL ONE (17:35)
[2017-06-12] MEDS ORDERED: KETOROLAC TROMETHAMINE 60 MG/2 ML VIAL IM ONE ×2 (18:25→18:33)
[2017-06-12] MEDS ORDERED: diphenhydrAMINE HCL 50 MG/ML VIAL IM ONE (18:25)
[2017-06-12] MEDS ORDERED: PROMETHAZINE HCL 50 MG/ML AMPUL IM ONE ×2 (18:25→18:33)
[2017-06-12 21:09] VITALS: BP 114/72
== END 2017-06-12 18:57 | disposition home or self-care (01) ==
LOC: ER 16:14
DX: G43.909 Migraine, unspecified, not intractable, without status migrainosus (principal); E11.9 Type 2 diabetes mellitus without complications